=== PATIENT | female | born 1980 | race Caucasian/White ===

== ENCOUNTER 2023-05-04 16:50 | Emergency (ER) | payer MEDICAID ==
[~2023-05-04] VITALS: Ht 160 cm; Wt 95.4 kg
[~2023-05-04 16:50] MED LIST: HYDR-4383 PO; MECL-159 PO; ONDA4TAB12 PO
[2023-05-04 16:52] VITALS: BP 153/91
[2023-05-04] MEDS ORDERED: lithium carbonate 300mg SR tablet (LithoBID) PO ONE (18:42)
== END 2023-05-04 18:57 | disposition home or self-care (01) ==
LOC: ER 16:52
DX: F31.9 Bipolar disorder, unspecified (principal); I10 Essential (primary) hypertension; F12.10 Cannabis abuse, uncomplicated; Z88.0 Allergy status to penicillin; Z87.81 Personal history of (healed) traumatic fracture; Z86.2 Personal history of diseases of the blood and blood-forming organs and certain disorders involving the immune mechanism; Z79.899 Other long term (current) drug therapy
CPT/HCPCS: 99283

== ENCOUNTER 2023-07-22 10:14 | Emergency (ER) | payer MEDICAID ==
[~2023-07-22] VITALS: Ht 157.5 cm; Wt 90.9 kg
[2023-07-22 13:09] VITALS: BP 131/94; PULSE 80; TEMP 98.8; O2SAT 98
[2023-07-22 13:19] VITALS: RESP 16
[2023-07-22] MEDS ORDERED: MECL-226 PO (14:22)
[2023-07-22] MEDS ORDERED: meclizine 12.5mg tablet PO ONE (14:25)
== END 2023-07-22 14:43 | disposition home or self-care (01) ==
LOC: ER 10:14
DX: R42 Dizziness and giddiness (principal); I10 Essential (primary) hypertension; F12.90 Cannabis use, unspecified, uncomplicated; Z88.0 Allergy status to penicillin; Z79.899 Other long term (current) drug therapy; Z98.51 Tubal ligation status
CPT/HCPCS: 99282; J8597